=== PATIENT | male | born 1980 | race Two or more races ===

== ENCOUNTER 2016-08-27 11:00 | Emergency (ER) | payer OTHER ==
[2016-08-27] MEDS ORDERED: OXYCODONE/APAP 5/325 TAB PO ONE (11:26)
[2016-08-27] MEDS ORDERED: predniSONE 20 MG TAB PO ONE (11:26)
--- NOTE | 2016-08-27 11:52 | EDPHY ---
H & P Stated Complaint: Lower back pain HPI/ROS: CHIEF COMPLAINT: Sciatica, leg pain HISTORY OF PRESENT ILLNESS: Patient complains of right-sided sciatic pain over the past few days. This is the same as his previous episodes of this. This has been worsened over the past 2 days. It is severe, 8/10 to 10/10 pain. Difficult to sleep due to the no midline tenderness of the back. No numbness or tingling. No saddle anesthesia. No incontinence of bowel or bladder. No trauma or injury. He was seen for this last year in [facility] with physical therapy with success. He has not yet seen anyone here as [place]. No other associated complaints or modifying factors. PRIOR ORTHO INJURIES: Right-sided sciatica ESTABLISHED ORTHOPEDIST: None established here in [place] REVIEW OF SYSTEMS: Ten systems reviewed and are negative unless otherwise noted in the HPI EXAMINATION General Appearance: Alert, no distress Cardiovascular: Pulses normal throughout. Symmetric DP and PT pulses 2+. Brisk cap refill Back: Tenderness over the right SI joint. There is no midline tenderness at any level of the spine. No crepitus, step-off or deformity. Range of motion intact Neurological: GCS 15. A&O, sensory symmetric, strength symmetric. Patellar reflexes symmetric Skin: Warm and dry, no rash. No lacerations abrasions or contusions Extremities: Nontender, no pedal edema. Range of motion is symmetric and the hips, knees and ankles Psychiatric: Mood and affect normal DIFFERENTIAL DIAGNOSES: Including but not limited to sciatica, lumbar radiculopathy, low back pain, muscular strain MDM: 11:30 a.m. Acute exacerbation of right-sided sciatica. There is no evidence of acute cord compression or cauda equina. He is neuro intact. Discharged home with short course of steroid, muscle relaxant pain medication. I will provide information for him to follow up with primary care physician and Neurosurgery for definitive care. Return to ER for any worsening pain, weakness, numbness or tingling, saddle anesthesia, incontinence of bowel or bladder. He is comfortable this plan and discharged home ambulatory without assistance. ED Precautions: Worsening pain. Erythema, edema, cyanosis, pallor, paresthesia or anesthesia. SUPERVISION: This patient was independently evaluated without direct examination by the attending physician. Case was discussed with attending physician. Source: Patient, Family Exam Limitations: No limitations - Social History Smoking Status: Never smoked Constitutional: Initial Vital Signs Temperature (C) 98.1 F 08/27/16 11:10 Heart Rate 66 08/27/16 11:10 Respiratory Rate 18 08/27/16 11:10 Blood Pressure 113/74 08/27/16 11:10 O2 Sat (%) 95 08/27/16 11:10 O2 Delivery Mode Room Air Allergies/Adverse Reactions: No Known Allergies Allergy (Unverified 08/27/16 11:10) Home Medications: Medication Instructions Recorded Cyclobenzaprine [Flexeril 10 MG 10 mg PO TID PRN #15 tab 08/27/16 (*)] oxyCODONE HCL/ACETAMINOPHEN 1 each PO Q4-6PRN PRN #20 tablet 08/27/16 [Percocet 5-325 mg Tablet] predniSONE [Deltasone] 60 mg PO DAILY #15 tablet 08/27/16 Medical Decision Making - Data Points Medications Given: Discontinued Medications Oxycodone/Acetaminophen (Percocet 5/325) 1 tab PO EDNOW ONE Stop: 08/27/16 11:27 Last Admin: 08/27/16 11:44 Dose: 1 tab Prednisone (Prednisone) 60 mg PO EDNOW ONE Stop: 08/27/16 11:27 Last Admin: 08/27/16 11:44 Dose: 60 mg Departure - Departure Disposition: Home, Routine, Self-Care Clinical Impression: Sciatica Qualifiers: Laterality: right Qualified Code(s): M54.31 - Sciatica, right side Condition: Good Instructions: Sciatica (ED), Piriformis Syndrome (ED) Additional Instructions: 1. Medications as prescribed 2. Follow up with primary care physician and Neurosurgery 3. Return here for any worsening pain, numbness, tingling, weakness, incontinence of bowel or bladder Referrals: NONE *PRIMARY CARE P,. [Primary Care Provider] - As per Instructions Raymundo Evans [Doctor of Osteopathy] - As per Instructions Imtiaz Leonard MD [Medical Doctor] - As per Instructions Prescriptions: Cyclobenzaprine [Flexeril 10 MG (*)] 10 mg PO TID PRN #15 tab PRN Reason: Spasms oxyCODONE HCL/ACETAMINOPHEN [Percocet 5-325 mg Tablet] 1 each PO Q4-6PRN PRN # 20 tablet PRN Reason: Pain, Breakthrough predniSONE [Deltasone] 60 mg PO DAILY #15 tablet
[2016-08-27 12:06] VITALS: BP 114/75; PULSE 64; RESP 16; TEMP 97.5; O2SAT 97
== END 2016-08-27 12:07 | disposition home or self-care (01) ==
DX: M54.31 Sciatica, right side (principal)